=== PATIENT | male | born 1955 | race Caucasian/White ===

== ENCOUNTER 2018-04-19 13:30 | Emergency (ER) | payer OTHER, MEDICARE ==
--- NOTE | 2018-04-19 14:33 | ER Document Report ---
ED Medical Screen (RME) - General Chief Complaint: Respiratory Distress Stated Complaint: FEELS COLD Time Seen by Provider: 04/19/18 14:26 Notes: This 63-year-old male patient who moved to this area in November of this year is seen at the local [place] clinic. He reports complaining of feeling cold all over all the time for the past 2-3 months. He also complains of being short of breath, but states his breathing is at its baseline. His spouse feels that he needs oxygen but cannot convince anyone. He was on oxygen in the past prior to moving this area. His room air pulse ox is 98% today. He does continue to smoke. I have greeted and performed a rapid initial assessment of this patient. A comprehensive ED assessment and evaluation of the patient, analysis of test results and completion of the medical decision making process will be conducted by additional ED providers. TRAVEL OUTSIDE OF THE [place] IN LAST 30 DAYS: No - Related Data Allergies/Adverse Reactions: meclizine Allergy (Verified 04/19/18 13:31) Physical Exam - Vital signs Vitals: Temp Pulse Resp BP Pulse Ox 97.5 F 64 22 H 143/68 H 98 04/19/18 13:40 04/19/18 13:40 04/19/18 13:40 04/19/18 13:40 04/19/18 13:40 Course - Vital Signs Vital signs: Temp Pulse Resp BP Pulse Ox 97.5 F 64 22 H 143/68 H 98 04/19/18 13:40 04/19/18 13:40 04/19/18 13:40 04/19/18 13:40 04/19/18 13:40
[2018-04-19 15:10] LABS: ABSOLUTE BASOPHILS # (AUTO) 0.1 10^3/uL (0.0-0.2); ABSOLUTE EOSINOPHILS # (AUTO) 0.2 10^3/uL (0.0-0.6); ABSOLUTE LYMPHOCYTES (AUTO) 2.5 10^3/uL (0.5-4.7); ABSOLUTE MONOCYTES (AUTO) 0.8 10^3/uL (0.1-1.4); BASOPHILS % (AUTO) 1.2 % (0-2); EOSINOPHILS % (AUTO) 2.2 % (0-6); HEMATOCRIT 50.4 % (37.9-51.0); LYMPHOCYTES % (AUTO) 26.1 % (13-45); MEAN CORPUSCULAR HEMOGLOBIN 29.7 pg (27.0-33.4); MEAN CORPUSCULAR HGB CONC 33.8 g/dL (32.0-36.0); MEAN CORPUSCULAR VOLUME 88 fl (80-97); MONOCYTES % (AUTO) 8.2 % (3-13); PLATELET COUNT 250 10^3/uL (150-450); RED BLOOD COUNT 5.73 10^6/uL (4.35-5.55); RED CELL DISTRIBUTION WIDTH 13.8 % (11.5-14.0); SEGMENTED NEUTROPHILS % (AUTO) 62.3 % (42-78); TOTAL CELLS COUNTED % (AUTO) 100 %; WHITE BLOOD COUNT 9.6 10^3/uL (4.0-10.5)
--- NOTE | 2018-04-19 15:10 | ER Document Report ---
ED General - General Chief Complaint: Respiratory Distress Stated Complaint: FEELS COLD Time Seen by Provider: 04/19/18 14:26 Mode of Arrival: Ambulatory Information source: Patient Notes: 63-year-old male presents emergency department with complaints of chills for the last couple of months. Patient denies any other symptoms at this time. He states that he is chronically short of breath. He states that this is not new. He has a history of COPD and continues to smoke. [facility] ordered him a nebulizer machine but he has not received it yet. Patient states that he has been using an albuterol inhaler and Spiriva as needed. He is not on any home oxygen. He is not on CPAP. Patient denies any chest pain, abdominal pain, nausea, vomiting, diarrhea, constipation, dysuria, hematuria. TRAVEL OUTSIDE OF THE [place] IN LAST 30 DAYS: No - HPI Onset: Other - "months" Onset/Duration: Gradual Quality of pain: No pain Severity: None Pain Level: Denies Associated symptoms: Chills Exacerbated by: Denies Relieved by: Denies Similar symptoms previously: No Recently seen / treated by doctor: No - Related Data Allergies/Adverse Reactions: meclizine Allergy (Verified 04/19/18 13:31) Past Medical History - General Information source: Patient - Social History Smoking Status: Current Every Day Smoker Family History: Reviewed & Not Pertinent Patient has suicidal ideation: No Patient has homicidal ideation: No - Past Medical History Cardiac Medical History: Reports: Hx Heart Attack - x1, Hx Hypercholesterolemia , Hx Hypertension Pulmonary Medical History: Reports: Hx COPD Renal/ Medical History: Denies: Hx Peritoneal Dialysis Musculoskeletal Medical History: Reports Hx Arthritis - bilateral shoulders and hands Past Surgical History: Reports: Hx Cardiac Catheterization - x2 stents, Hx Testicular Surgery - right removed Review of Systems - Review of Systems Constitutional: Chills EENT: No symptoms reported Cardiovascular: No symptoms reported Respiratory: No symptoms reported Gastrointestinal: No symptoms reported Genitourinary: No symptoms reported Male Genitourinary: No symptoms reported Musculoskeletal: No symptoms reported Skin: No symptoms reported Hematologic/Lymphatic: No symptoms reported Neurological/Psychological: No symptoms reported -: Yes All other systems reviewed and negative Physical Exam - Vital signs Vitals: Temp Pulse Resp BP Pulse Ox 97.5 F 64 22 H 143/68 H 98 04/19/18 13:40 04/19/18 13:40 04/19/18 13:40 04/19/18 13:40 04/19/18 13:40 - Notes Notes: PHYSICAL EXAMINATION: GENERAL: Well-appearing, well-nourished and in no acute distress. HEAD: Atraumatic, normocephalic. EYES: Pupils equal round and reactive to light, extraocular movements intact, sclera anicteric, conjunctiva are normal. ENT: Nares patent, oropharynx clear without exudates. Moist mucous membranes. NECK: Normal range of motion, supple without lymphadenopathy LUNGS: Diffuse wheezing. HEART: Regular rate and rhythm without murmurs ABDOMEN: Soft, nontender, nondistended abdomen. No guarding, no rebound. No masses appreciated. Musculoskeletal: Normal range of motion, no pitting or edema. No cyanosis. NEUROLOGICAL: Cranial nerves grossly intact. Normal speech, normal gait. Normal sensory, motor exams PSYCH: Normal mood, normal affect. SKIN: Warm, Dry, normal turgor, no rashes or lesions noted. Course - Re-evaluation Re-evalutation: 04/19/18 15:15 EKG: Ventricular rate 60, WI interval 200, castration 76, QTc 396, sinus rhythm , no ST segment elevation. 04/19/18 15:59 Labs and imaging obtained. WBC is normal. No signs of infection in the urine. CXR shows blunting of the left costophrenic angle, Likely chronic. Signs COPD. Patient given solumedrol and duoneb in the ED. On re-evaluation, patient has no complaints besides chills. Vitals stable. Sating at 98% on room air. I will discharge home with rx for prednisone and azithromycin. I instructed the patient to follow up with his PCP this week, to take medication as directed, and to return for worsening symptoms. Patient is agreeable with the plan of care. 04/19/18 16:00 - Vital Signs Vital signs: Temp Pulse Resp BP Pulse Ox 97.5 F 64 22 H 143/68 H 98 04/19/18 13:40 04/19/18 13:40 04/19/18 13:40 04/19/18 13:40 04/19/18 13:40 - Laboratory Result Diagrams: 04/19/18 14:56 04/19/18 14:56 Laboratory results interpreted by me: 04/19/18 04/19/18 14:56 14:56 RBC 5.73 H Carbon Dioxide 34 H Total Bilirubin 1.4 H ALT 16 L Discharge - Discharge Clinical Impression: Chills COPD (chronic obstructive pulmonary disease) Qualifiers: COPD type: unspecified COPD Qualified Code(s): J44.9 - Chronic obstructive pulmonary disease, unspecified Condition: Good Disposition: HOME, SELF-CARE Instructions: Chronic Obstructive Lung Disease ([facility]), Pneumonia ([facility]) Prescriptions: Azithromycin [Zithromax 250 mg Tablet] 250 mg PO ASDIR PRN #6 tablet PRN Reason: Prednisone [Deltasone 20 mg Tablet] 3 tab PO DAILY 5 Days #15 tablet Referrals: SIM GRIFFIN DO [NO LOCAL MD] - Follow up as needed
[2018-04-19] MEDS ORDERED: IPRATROPIUM/ALBUTEROL 0.5-2.5 MG/3 ML AMPUL NEB ONE (15:22)
[2018-04-19] MEDS ORDERED: METHYLPREDNISOLONE INJ 125 MG/2 ML SDV IV ONE (15:22)
[2018-04-19 15:25] LABS: APPEARANCE,URINE CLEAR; BILIRUBIN,URINE NEGATIVE (NEGATIVE); COLOR,URINE COLORLESS; GLUCOSE, URINE NEGATIVE (NEGATIVE); KETONES,URINE NEGATIVE (NEGATIVE); LEUKOCYTE ESTERASE,URINE NEGATIVE (NEGATIVE); NITRITE,URINE NEGATIVE (NEGATIVE); PROTEIN,URINE NEGATIVE (NEGATIVE); URINE SPECIFIC GRAVITY 1.003; UROBILINOGEN,URINE NEGATIVE mg/dL (<2.0)
[2018-04-19 15:34] LABS: ALANINE AMINOTRANSFERASE 16 U/L (21-72); ALBUMIN 4.8 g/dL (3.5-5.0); ALKALINE PHOSPHATASE 98 U/L (38-126); ANION GAP 12 (5-19); ASPARTATE AMINO TRANSFERASE 25 U/L (17-59); BILIRUBIN,DIRECT 0.3 mg/dL (0.0-0.4); BILIRUBIN,TOTAL 1.4 mg/dL (0.2-1.3); BLOOD UREA NITROGEN 8 mg/dL (7-20); CALCIUM 9.6 mg/dL (8.4-10.2); CARBON DIOXIDE 34 mmol/L (22-30); CHLORIDE 99 mmol/L (98-107); GLUCOSE 88 mg/dL (75-110); POTASSIUM 4.1 mmol/L (3.6-5.0); SODIUM 144.7 mmol/L (137-145); TOTAL PROTEIN 7.6 g/dL (6.3-8.2)
--- NOTE | 2018-04-19 15:46 | RADIOLOGY REPORT (SQ) ---
EXAM DESCRIPTION: CHEST 2 VIEWS COMPLETED DATE/TIME: 04/19/2018 3:18 pm REASON FOR STUDY: SOB COMPARISON: None. EXAM PARAMETERS: NUMBER OF VIEWS: two views TECHNIQUE: Digital Frontal and Lateral radiographic views of the chest acquired. RADIATION DOSE: NA LIMITATIONS: none FINDINGS: LUNGS AND PLEURA: There are pleural and parenchymal changes in the left mid and lower hosea thorax with blunting of the left costophrenic angle which may be chronic in nature. The possibility of an acute process cannot be completely excluded however. Remaining lung hair are clear. There i s evidence for obstructive lung disease. MEDIASTINUM AND HILAR STRUCTURES: No masses or contour abnormalities. HEART AND VASCULAR STRUCTURES: Heart normal size. No evidence for failure. BONES: No acute findings. HARDWARE: None in the chest. OTHER: No other significant finding. IMPRESSION: Chronic appearing pleural and parenchymal changes in the left lower hemithorax as noted above. Remaining lung hair are clear. There is evidence for obstructive lung disease. Other find ings as noted above TECHNICAL DOCUMENTATION: JOB ID: [id number] [employer]- All Rights Reserved Reading location - IP/workstation name: [email or web address]
[2018-04-19] MEDS ORDERED: METHYLPREDNISOLONE INJ 125 MG/2 ML SDV IM ONE (15:55)
[2018-04-19 16:14] VITALS: BP 155/80
--- NOTE | 2018-04-19 20:11 | EKG REPORT ---
SEVERITY:- NORMAL ECG - SINUS RHYTHM : Confirmed by: Delgado Davidson 19-Apr-2018 20:10:31
== END 2018-04-19 16:18 | disposition home or self-care (01) ==
LOC: ER 13:30
DX: R68.83 Chills (without fever) (principal); J44.9 Chronic obstructive pulmonary disease, unspecified; R06.00 Dyspnea, unspecified; F17.210 Nicotine dependence, cigarettes, uncomplicated; E78.00 Pure hypercholesterolemia, unspecified; I10 Essential (primary) hypertension; I25.2 Old myocardial infarction
CPT/HCPCS: 93005; 94640; 99285; 96372; 36415; 85025; 80053; 81001; 71046; 93010; J2930; J7620

== ENCOUNTER 2018-10-18 11:08 | Emergency (ER) | payer OTHER, MEDICARE, MEDICAID ==
[2018-10-18] MEDS ORDERED: ONDANSETRON 4 MG TAB.RAPDIS PO ONE (12:00)
--- NOTE | 2018-10-18 12:02 | ER Document Report ---
ED Medical Screen (RME) - General Chief Complaint: Abdominal Pain Stated Complaint: ABDOMINAL PAIN Time Seen by Provider: 10/18/18 11:56 Mode of Arrival: Medic Information source: Patient Notes: 63-year-old male presented to ED for abdominal pain constipation nausea and vomiting x3 today. states she called the EMS because he would not straighten up to have was having so much pain in his abdomen. He does have a history of coronary artery disease heart attack blood pressure cholesterol and testicular cancer. He does have cardiac stents and had 1 of his testicles removed for the cancer. Patient is alert oriented respirations regular and unlabored peaking in full sentences at this time. He does smoke 1-1/2 to 2 packs/day does not drink or do drugs. Patient has tenderness to the lower abdomen with active bowel sounds I have greeted and performed a rapid initial assessment of this patient. A comprehensive ED assessment and evaluation of the patient, analysis of test results and completion of medical decision making process will be conducted by an additional ED providers. Dictation of this chart was performed using voice recognition software; therefore, there may be some unintended grammatical errors. TRAVEL OUTSIDE OF THE [place] IN LAST 30 DAYS: No - Related Data Allergies/Adverse Reactions: meclizine Allergy (Verified 10/18/18 11:10) Past Medical History - Past Medical History Cardiac Medical History: Reports: Hx Heart Attack - x1, Hx Hypercholesterolemia, Hx Hypertension Pulmonary Medical History: Reports: Hx COPD Renal/ Medical History: Denies: Hx Peritoneal Dialysis Musculoskeltal Medical History: Reports Hx Arthritis - bilateral shoulders and hands Past Surgical History: Reports: Hx Cardiac Catheterization - x2 stents, Hx Testicular Surgery - right removed Physical Exam - Vital signs Vitals: Temp Pulse Resp BP Pulse Ox 98.7 F 93 20 136/81 H 90 L 10/18/18 11:18 10/18/18 11:18 10/18/18 11:18 10/18/18 11:18 10/18/18 11:18 Course - Vital Signs Vital signs: Temp Pulse Resp BP Pulse Ox 98.7 F 93 20 136/81 H 90 L 10/18/18 11:18 10/18/18 11:18 10/18/18 11:18 10/18/18 11:18 10/18/18 11:18
[2018-10-18 12:35] LABS: ABSOLUTE BASOPHILS # (AUTO) 0.1 10^3/uL (0.0-0.2); ABSOLUTE LYMPHOCYTES (AUTO) 1.7 10^3/uL (0.5-4.7); ABSOLUTE MONOCYTES (AUTO) 0.8 10^3/uL (0.1-1.4); ABSOLUTE NEUT (AUTO) 13.3 10^3/uL (1.7-8.2); BASOPHILS % (AUTO) 0.9 % (0-2); EOSINOPHILS % (AUTO) 0.2 % (0-6); HEMATOCRIT 48.5 % (37.9-51.0); HEMOGLOBIN 15.9 g/dL (13.5-17.0); LYMPHOCYTES % (AUTO) 10.9 % (13-45); MEAN CORPUSCULAR HEMOGLOBIN 29.4 pg (27.0-33.4); MEAN CORPUSCULAR HGB CONC 32.7 g/dL (32.0-36.0); MEAN CORPUSCULAR VOLUME 90 fl (80-97); MONOCYTES % (AUTO) 4.8 % (3-13); PLATELET COUNT 368 10^3/uL (150-450); RED CELL DISTRIBUTION WIDTH 14.1 % (11.5-14.0); SEGMENTED NEUTROPHILS % (AUTO) 83.2 % (42-78); TOTAL CELLS COUNTED % (AUTO) 100 %
--- NOTE | 2018-10-18 12:39 | RADIOLOGY REPORT (SQ) ---
EXAM DESCRIPTION: ACUTE ABDOMEN SERIES COMPLETED DATE/TIME: 10/18/2018 12:31 pm REASON FOR STUDY: abdominal pain nv COMPARISON: None. NUMBER OF VIEWS: Three views. TECHNIQUE: Frontal chest, supine abdomen and upright/decubitus abdomen radiographic images acquired. LIMITATIONS: None. FINDINGS: CHEST: Lungs clear of infiltrates. FREE AIR: None. No abnormal gas collections. BOWEL GAS PATTERN: Nonobstructive pattern. No dilated loops or air fluid levels. CALCIFICATIONS: No suspicious calcifications. HARDWARE: None in the abdomen. SOFT TISSUES: No gross mass or suggestion of organomegaly. BONES: No acute fracture. No worrisome bone lesions. OTHER: No other significant finding. IMPRESSION: NO RADIOGRAPHIC EVIDENCE FOR ACUTE ABDOMINAL DISEASE. TECHNICAL DOCUMENTATION: JOB ID: [id number] [employer]- All Rights Reserved Reading location - IP/workstation name: [email or web address]
[2018-10-18 12:57] LABS: ALANINE AMINOTRANSFERASE 28 U/L (21-72); ALBUMIN 4.6 g/dL (3.5-5.0); ALKALINE PHOSPHATASE 144 U/L (38-126); ANION GAP 19 (5-19); ASPARTATE AMINO TRANSFERASE 28 U/L (17-59); BILIRUBIN,DIRECT 0.3 mg/dL (0.0-0.4); BILIRUBIN,TOTAL 1.9 mg/dL (0.2-1.3); BLOOD UREA NITROGEN 23 mg/dL (7-20); CARBON DIOXIDE 29 mmol/L (22-30); CHLORIDE 96 mmol/L (98-107); GLUCOSE 125 mg/dL (75-110); LIPASE 43.4 U/L (23-300); POTASSIUM 4.9 mmol/L (3.6-5.0); TOTAL PROTEIN 7.2 g/dL (6.3-8.2)
[2018-10-18] MEDS ORDERED: IPRATROPIUM/ALBUTEROL 0.5-2.5 MG/3 ML AMPUL NEB ONE (15:55)
[2018-10-18] MEDS ORDERED: NORMAL SALINE 1000 ML 1,000 ML IV ONE ×2 (15:56→18:02)
--- NOTE | 2018-10-18 16:18 | ER Document Report ---
ED General - General Chief Complaint: Abdominal Pain Stated Complaint: ABDOMINAL PAIN Time Seen by Provider: 10/18/18 11:56 Primary Care Provider: KARINE MARCANO [Primary Care Provider] - Follow up as needed Mode of Arrival: Medic TRAVEL OUTSIDE OF THE [place] IN LAST 30 DAYS: No - HPI Notes: Patient is a 63-year-old male that presents to the emergency department for chief complaint of lower abdominal pain. Patient states when he woke up at 8 AM this morning he noted a pressure and pain sensation in his suprapubic region. He also reports a pressure in his low back. He denies any associated fevers or chills. He states he has not urinated since yesterday afternoon. He denies history of urinary obstruction in the past. Patient is unsure when his last bowel movement was and does believe he has had constipation. Patient denies any aggravating or relieving factors to his pain. Past Medical History: COPD, hypertension Past Surgical History: Negative Social History: Daily tobacco. Denies drug and alcohol use Family History: Reviewed and noncontributory for presenting illness Allergies: Reviewed, see documented allergy list. REVIEW OF SYSTEMS: CONSTITUTIONAL : No fever No chills No diaphoresis No recent illness EENT: No vision changes No congestion No sore throat CARDIOVASCULAR: No chest pain No palpitations RESPIRATORY: No shortness of breath No cough No difficulty breathing GASTROINTESTINAL: abdominal pain No nausea No vomiting No diarrhea GENITOURINARY: No dysuria No hematuria difficulty urinating MUSCULOSKELETAL: No back pain No leg pain No arm pain SKIN: No rashes No lesions LYMPHATIC: No swollen, enlarged glands. NEUROLOGICAL: No lightheadedness No headache No weakness No paresthesias PSYCHIATRIC: No anxiety No depression PHYSICAL EXAMINATION: Vital signs reviewed, nursing noted reviewed. GENERAL: Well-appearing, well-nourished and in no acute distress. HEAD: Atraumatic, normocephalic. EYES: Eyes appear normal, extraocular movements intact, sclera anicteric, conjunctiva are normal. ENT: nares patent, oropharynx clear without exudates. Moist mucous membranes. NECK: Normal range of motion, supple without lymphadenopathy LUNGS: Breath sounds clear to auscultation bilaterally and equal. No wheezes rales or rhonchi. HEART: Regular rate and rhythm without murmurs ABDOMEN: Soft, mild suprapubic tenderness, normoactive bowel sounds. No rebound, guarding, or rigidity. No masses appreciated. EXTREMITIES: Nontender, good range of motion, no pitting or edema. NEUROLOGICAL: No focal neurological deficits. Moves all extremities spontaneously Motor and sensory grossly intact on exam. PSYCH: Normal mood, normal affect. SKIN: Warm, Dry, normal turgor, no rashes or lesions noted on exposed skin - Related Data Allergies/Adverse Reactions: meclizine Allergy (Verified 10/18/18 11:10) Past Medical History - General Information source: Patient - Social History Smoking Status: Current Every Day Smoker Chew tobacco use (# tins/day): No Frequency of alcohol use: None Drug Abuse: None Family History: Reviewed & Not Pertinent Patient has suicidal ideation: No Patient has homicidal ideation: No - Past Medical History Cardiac Medical History: Reports: Hx Heart Attack - x1, Hx Hypercholesterolemia, Hx Hypertension Pulmonary Medical History: Reports: Hx COPD Renal/ Medical History: Denies: Hx Peritoneal Dialysis Musculoskeletal Medical History: Reports Hx Arthritis - bilateral shoulders and hands Past Surgical History: Reports: Hx Cardiac Catheterization - x2 stents, Hx Testicular Surgery - right removed Physical Exam - Vital signs Vitals: Temp Pulse Resp BP Pulse Ox 98.7 F 93 20 136/81 H 90 L 10/18/18 11:18 10/18/18 11:18 10/18/18 11:18 10/18/18 11:18 10/18/18 11:18 Course - Re-evaluation Re-evalutation: 10/18/18 16:17 Vitals reviewed. Nursing notes reviewed. Patient is afebrile and nontoxic in appearance. He does have a leukocytosis of 16. Patient has not been able to void since yesterday afternoon and Perdomo catheter has been ordered for urinary retention. 10/18/18 21:04 Patient reevaluated and his abdominal exam is unchanged. He is still mildly tender in the suprapubic region with no left upper or lower quadrant tenderness or peritoneal signs. His vital signs have remained stable. He states his pain is dull and well-controlled. He does have a leukocytosis on lab work. The remainder of his blood work is unremarkable. Urinalysis is negative. Patient had decreased urine output and only 60 mL's initially. Perdomo catheter was left in for strict I's and O's. Patient's renal function is normal. CT scan was obtained and shows a left-sided colitis. He has a large thrombus in his SMA but normal-appearing SMA distribution bowel. His JUSTIN is not well-visualized. I discussed patient's CT images with the radiologist who feels that he likely needs angiogram to further evaluate JUSTIN distribution of the bowel. There is a possibility that patient's colitis is ischemic however his abdominal exam and presentation is more consistent with infectious versus inflammatory. Currently do not have GI or vascular surgery available. Patient is requiring angiogram of his abdomen and colonoscopy with possible biopsy for further evaluation of the etiology of his colitis. Patient will be transferred to [facility] for further care. He is in agreement with this plan of care. Currently awaiting a callback from admitting physician. Laboratory 10/18/18 10/18/18 10/18/18 12:20 12:20 17:30 WBC 16.0 H RBC 5.40 Hgb 15.9 Hct 48.5 MCV 90 MCH 29.4 MCHC 32.7 RDW 14.1 H Plt Count 368 Seg Neutrophils % 83.2 H Lymphocytes % 10.9 L Monocytes % 4.8 Eosinophils % 0.2 Basophils % 0.9 Absolute Neutrophils 13.3 H Absolute Lymphocytes 1.7 Absolute Monocytes 0.8 Absolute Eosinophils 0.0 Absolute Basophils 0.1 Sodium 144.0 Potassium 4.9 Chloride 96 L Carbon Dioxide 29 Anion Gap 19 BUN 23 H Creatinine 1.25 Est GFR ( Amer) > 60 Est GFR (Non-Af Amer) 58 L Glucose 125 H Calcium 10.0 Total Bilirubin 1.9 H Direct Bilirubin 0.3 Neonat Total Bilirubin Not Reportable Neonat Direct Bilirubin Not Reportable Neonat Indirect Bili Not Reportable AST 28 ALT 28 Alkaline Phosphatase 144 H Total Protein 7.2 Albumin 4.6 Lipase 43.4 Urine Color BENOIT Urine Appearance CLOUDY Urine pH 5.0 Ur Specific [place] 1.019 Urine Protein 100 H Urine Glucose (UA) NEGATIVE Urine Ketones 20 H Urine Blood NEGATIVE Urine Nitrite NEGATIVE Urine Bilirubin SMALL H Urine Urobilinogen 4.0 H Ur Leukocyte Esterase NEGATIVE Urine WBC (Auto) 8 Urine RBC (Auto) 0 U Hyaline Cast (Auto) 73 Squamous Epi Cells Auto 2 Urine Mucus (Auto) MOD Urine Ascorbic Acid NEGATIVE Acute Abdomen Series 10/18/18 12:00 IMPRESSION: NO RADIOGRAPHIC EVIDENCE FOR ACUTE ABDOMINAL DISEASE. Abdomen/Pelvis CT 10/18/18 18:23 IMPRESSION: 1. Moderately atherosclerotic abdominal aorta and iliac arteries. 2. Suspected mild colitis extending from the splenic flexure of the colon to the proximal rectum. This could represent occlusion of the inferior mesenteric artery that is not well visualized on this specific examination. 3. Evaluation of the super mesenteric artery demonstrates an elongated defect suspicious for thrombus or embolus located in its origin. No obvious ischemic changes in the small bowel and right colon which would be SMA territory. If clinically suspicious, consider CT angiogram or interventional angiogram. 4. Left pleural calcifications. Suspicious for asbestos exposure although a if unilateral may be due to other old insult.. Patient's care was discussed with Dr. Holden Gonzalez, vascular surgery, at [facility] who has accepted patient for transfer. He would like to evaluate patient and review his films prior to definitive management of his SMA finding. He is concerned this may be plaque instead of thrombus or embolus. Patient will be transferred to the emergency room where vascular surgery will evaluate him for further management. Because of delay in ground transportation Dr. Gonzalez has approved [facility]. Patient is currently stable for transfer. - Vital Signs Vital signs: Temp Pulse Resp BP Pulse Ox 97.7 F 89 16 150/79 H 95 10/18/18 15:53 10/18/18 15:53 10/18/18 15:53 10/18/18 15:53 10/18/18 15:53 - Laboratory Result Diagrams: 10/18/18 12:20 10/18/18 12:20 Laboratory results interpreted by me: 10/18/18 10/18/18 10/18/18 12:20 12:20 17:30 WBC 16.0 H RDW 14.1 H Seg Neutrophils % 83.2 H Lymphocytes % 10.9 L Absolute Neutrophils 13.3 H Chloride 96 L BUN 23 H Est GFR (Non-Af Amer) 58 L Glucose 125 H Total Bilirubin 1.9 H Alkaline Phosphatase 144 H Urine Protein 100 H Urine Ketones 20 H Urine Bilirubin SMALL H Urine Urobilinogen 4.0 H Discharge - Discharge Clinical Impression: Superior mesenteric artery thrombosis, Colitis Condition: Stable Disposition: [facility]: [facility] [Primary [facility] Provider] - Follow up as needed
[2018-10-18 18:05] LABS: APPEARANCE,URINE CLOUDY; BILIRUBIN,URINE SMALL (NEGATIVE); COLOR,URINE AMBER; GLUCOSE, URINE NEGATIVE (NEGATIVE); KETONES,URINE 20 mg/dL (NEGATIVE); LEUKOCYTE ESTERASE,URINE NEGATIVE (NEGATIVE); NITRITE,URINE NEGATIVE (NEGATIVE); PROTEIN,URINE 100 mg/dL (NEGATIVE); URINE SPECIFIC GRAVITY 1.019
--- NOTE | 2018-10-18 20:31 | RADIOLOGY REPORT (SQ) ---
EXAM DESCRIPTION: CLINICAL HISTORY: 63 years Male lower abdominal pain COMPARISON: None TECHNIQUE: Axial images with IV contrast. 63 mL of Omnipaque 350 provided. FINDINGS: Minimal scarring in the lung bases. Minimal left pleurodiaphragmatic calcification. Coarse left lateral pleural calcification. The liver, spleen, pancreas, biliary system, adrenal glands, kidneys, para-aortic regions are unremarkable. Moderately atherosclerotic aorta without significant dilatation or narrowing. Suspected significant atherosclerotic disease possibly even small embolus in the origin of the super mesenteric artery. Series 3 image 19. Series 602 image 50. Arterial anatomy is not optimally delineated. Small bowel loops are unremarkable. Right and transverse colon are unremarkable. There is mild thickening of the wall of the descending colon. CT of the pelvis demonstrates mild to moderate thickening of the entire sigmoid wall. Upper rectum may be involved also. Distal rectum is unremarkable. Urinary bladder partially contracted. Small amount of air within the bladder is apparently within a balloon catheter.. No evidence for free fluid or free air and no evidence for adenopathy.. IMPRESSION: 1. Moderately atherosclerotic abdominal aorta and iliac arteries. 2. Suspected mild colitis extending from the splenic flexure of the colon to the proximal rectum. This could represent occlusion of the inferior mesenteric artery that is not well visualized on this specific examination. 3. Evaluation of the super mesenteric artery demonstrates an elongated defect suspicious for thrombus or embolus located in its origin. No obvious ischemic changes in the small bowel and right colon which would be SMA territory. If clinically suspicious, consider CT angiogram or interventional angiogram. 4. Left pleural calcifications. Suspicious for asbestos exposure although a if unilateral may be due to other old insult..
[2018-10-18] MEDS ORDERED: MORPHINE SULFATE 10 MG/ML INJ IV ONE (22:14)
[2018-10-18 23:26] VITALS: BP 167/84
== END 2018-10-18 22:47 | disposition short-term general hospital (02) ==
LOC: ER 11:08
DX: K55.069 Acute infarction of intestine, part and extent unspecified (principal); K52.89 Other specified noninfective gastroenteritis and colitis; I70.0 Atherosclerosis of aorta; I70.8 Atherosclerosis of other arteries; R33.9 Retention of urine, unspecified; R10.30 Lower abdominal pain, unspecified; J44.9 Chronic obstructive pulmonary disease, unspecified; J94.8 Other specified pleural conditions; I10 Essential (primary) hypertension; F17.200 Nicotine dependence, unspecified, uncomplicated; Z88.8 Allergy status to other drugs, medicaments and biological substances
CPT/HCPCS: 94640; 99285; 96361; 51702; 96374; 36415; 83605; 83690; 85025; 80053; 81001; 74022; 74177; C1758; S0119; J2270; J7030; J7620

== ENCOUNTER → 2019-05-18 | Outpatient (CLI) | payer OTHER ==
--- NOTE | 2019-05-18 16:07 | RADIOLOGY REPORT (SQ) ---
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 TECHNIQUE: Multiplanar imaging includes noncontrasted T1, T2, FLAIR, diffusion with ADC map and post gadolinium contrast T1 sequences. Additional thin section coronal and sagittal T2, T1 precontrast, T1 postcontrast images through the p ituitary fossa. Images stored on PACS. CONTRAST TYPE AND DOSE: 10 mL Dotarem. RENAL FUNCTION: Not indicated. ACR Type II contrast agent associated with few, if any, unconfounded cases of NSF LIMITATIONS: Motion artifact on the post contrasted images FINDINGS: PITUITARY FOSSA: Normal size pituitary gland for age. No focal lesions. No cysts. Midli ne infundibulum caps normal suprasellar cistern and optic chiasm. Pituitary gland measures 11 mm AP by 12 mm transverse by 4 mm craniocaudad. CSF SPACES: Normal in size and contour. No hemorrhage. CEREBRUM: Sulci and gyri normal in size and contour. Normal white matter signal on FLAIR imaging. No evidence of hemorrhage, mass, or extraaxial fluid collection. No abnormal enhancement post contrast. POSTERIOR FOSSA: No signal alteration. No hemorrhage. No edema, masses, or mass effect. Internal charlie tory canals, cerebellopontine angles, mastoids normal. No enhancing lesions. No abnormal enhancement post contrast. DIFFUSION IMAGING: Negative for acute or subacute infarction. ORBITS: No masses. Globes normal. PARANASAL SINUSES: No fluid levels. Mucosa normal. OTHER: No other significant finding. IMPRESSION: NORMAL MRI OF THE BRAIN WITHOUT AND WITH INTRAVENOUS GADOLINIUM CONTRAST. EVIDENCE OF ACUTE STROKE: NO. TECHNICAL DOCUMENTATION: JOB ID: [id number] [employer]- All Rights Reserved Reading location - IP/workstation name: [email or web address]
== END ==
LOC: RAD 12:02
PROVIDERS: ATTEND Family Medicine
DX: D35.2 Benign neoplasm of pituitary gland (principal)
CPT/HCPCS: 82565; 70553; A9576

== ENCOUNTER 2020-01-31 16:35 | Emergency (ER) | payer MEDICARE, OTHER ==
--- NOTE | 2020-01-31 17:24 | ER Document Report ---
ED Medical Screen (RME) - General Chief Complaint: Headache Stated Complaint: FALL/HEAD PAIN Time Seen by Provider: 01/31/20 17:14 Primary Care Provider: MEDARDO BAKER MD [Primary Care Provider] - Follow up as needed Mode of Arrival: Ambulatory Information source: Patient Notes: 65-year-old male presented to ED for complaint of headaches every other day affecting his vision. [facility]. He states he started having sex about a month ago but Thursday they got much worse he actually blacked out and fell. He states he [facility] to call [facility] on Thursday and he could not get a hold to him but today they got home to him and sent him to the emergency room. 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 He states he does smoke a half a pack a day does not drink or use any illicit drugs. He is alert and oriented respirations regular nonlabored speaking in full sentences. I have greeted and performed a rapid initial assessment of this patient. A comprehensive ED assessment and evaluation of the patient, analysis of test results and completion of medical decision making process will be conducted by an additional ED providers. TRAVEL OUTSIDE OF THE [place] IN LAST 30 DAYS: No - Related Data Allergies/Adverse Reactions: meclizine Allergy (Verified 01/31/20 17:13) Home Medications: eye surgery retinol detachment. testicular right removed. stent - cardiac. copd. ptsd. pad. pvd. cad. cholesterol. htn Past Medical History - Social History Chew tobacco use (# tins/day): No Frequency of alcohol use: None Drug Abuse: None - Past Medical History Cardiac Medical History: Reports: Hx Heart Attack - x1, Hx Hypercholesterolemia, Hx Hypertension Pulmonary Medical History: Reports: Hx COPD Renal/ Medical History: Denies: Hx Peritoneal Dialysis Musculoskeltal Medical History: Reports Hx Arthritis - bilateral shoulders and hands Past Surgical History: Reports: Hx Cardiac Catheterization - x2 stents, Hx Testicular Surgery - right removed Physical Exam - Vital signs Vitals: Temp Pulse Resp BP Pulse Ox 97.6 F 85 18 162/71 H 96 01/31/20 16:41 01/31/20 16:41 01/31/20 16:41 01/31/20 16:41 01/31/20 16:41 Course - Vital Signs Vital signs: Temp Pulse Resp BP Pulse Ox 97.6 F 85 18 162/71 H 96 01/31/20 17:13 01/31/20 16:41 01/31/20 16:41 01/31/20 16:41 01/31/20 16:41 Doctor's Discharge - Discharge Referrals: MEDARDO BAKER MD [Primary Care Provider] - Follow up as needed
[2020-01-31 18:17] LABS: ABSOLUTE BASOPHILS # (AUTO) 0.2 10^3/uL (0.0-0.2); ABSOLUTE EOSINOPHILS # (AUTO) 0.2 10^3/uL (0.0-0.6); ABSOLUTE LYMPHOCYTES (AUTO) 1.8 10^3/uL (0.5-4.7); ABSOLUTE MONOCYTES (AUTO) 0.6 10^3/uL (0.1-1.4); ABSOLUTE NEUT (AUTO) 4.9 10^3/uL (1.7-8.2); BASOPHILS % (AUTO) 2.1 % (0-2); EOSINOPHILS % (AUTO) 2.3 % (0-6); HEMATOCRIT 45.4 % (37.9-51.0); LYMPHOCYTES % (AUTO) 23.4 % (13-45); MEAN CORPUSCULAR HEMOGLOBIN 30.5 pg (27.0-33.4); MEAN CORPUSCULAR HGB CONC 33.1 g/dL (32.0-36.0); MEAN CORPUSCULAR VOLUME 92 fl (80-97); MONOCYTES % (AUTO) 8.1 % (3-13); PLATELET COUNT 223 10^3/uL (150-450); RED BLOOD COUNT 4.94 10^6/uL (4.35-5.55); RED CELL DISTRIBUTION WIDTH 14.2 % (11.5-14.0); SEGMENTED NEUTROPHILS % (AUTO) 64.1 % (42-78); TOTAL CELLS COUNTED % (AUTO) 100 %; WHITE BLOOD COUNT 7.7 10^3/uL (4.0-10.5)
[2020-01-31 18:22] LABS: APPEARANCE,URINE SLIGHTLY-CLOUDY; BILIRUBIN,URINE NEGATIVE (NEGATIVE); COLOR,URINE AMBER; GLUCOSE, URINE NEGATIVE (NEGATIVE); KETONES,URINE TRACE mg/dL (NEGATIVE); LEUKOCYTE ESTERASE,URINE NEGATIVE (NEGATIVE); NITRITE,URINE NEGATIVE (NEGATIVE); PROTEIN,URINE 100 mg/dL (NEGATIVE); URINE SPECIFIC GRAVITY 1.024
[2020-01-31 18:34] LABS: ALBUMIN 4.1 g/dL (3.5-5.0); ALKALINE PHOSPHATASE 72 U/L (38-126); ANION GAP 8 (5-19); ASPARTATE AMINO TRANSFERASE 22 U/L (17-59); BILIRUBIN,DIRECT 0.2 mg/dL (0.0-0.4); BILIRUBIN,TOTAL 0.9 mg/dL (0.2-1.3); BLOOD UREA NITROGEN 14 mg/dL (7-20); CALCIUM 9.2 mg/dL (8.4-10.2); CARBON DIOXIDE 30 mmol/L (22-30); CHLORIDE 103 mmol/L (98-107); GLUCOSE 90 mg/dL (75-110); POTASSIUM 5.2 mmol/L (3.6-5.0); TOTAL PROTEIN 6.2 g/dL (6.3-8.2)
[2020-01-31 18:36] LABS: ACETAMINOPHEN < 10 ug/mL (10-30)
--- NOTE | 2020-01-31 19:36 | RADIOLOGY REPORT (SQ) ---
EXAM DESCRIPTION: CTA HEAD IMAGES COMPLETED DATE/TIME: 01/31/2020 7:01 pm REASON FOR STUDY: Headache affecting vision COMPARISON: None. TECHNIQUE: Post IV contrast scanning, thin section axial imaging through the brain to evaluate the a rterial structures. Source and MIP images are saved and reviewed on PACS. Advanced 3D imaging as volume-rendering, MIPs, SSD performed? yes All CT scanners at this facility use dose modulation, iterative reconstruction, and/or weight based d osing when appropriate to reduce radiation dose to as low as reasonably achievable (ALARA). [facility]: Dose Right [facility]: CareDose [facility]: Dose Right [facility]: Teradose 4D [facility]: Yesware CONTRAST TYPE AND DOSE: contrast/concentration: Isovue 350.00 mmol/ml; Total Contrast Delivered: 70. 0 ml; Total Saline Delivered: 75.0 ml RENAL FUNCTION: Creatinine -0.84 BUN=14 RADIATION DOSE: Total exam DLP: 1331.81 mGy LIMITATIONS: None. FINDINGS: [place] GRANDE OF RIZVI: The anterior, middle, posterior cerebral arteries are all patent. No ev idence of aneurysm or focal stenosis. POSTERIOR CIRCULATION: The distal vertebral arteries are patent as is the basilar artery. No aneurysm . BRAIN: No gross enhancing lesions as visualized. The superior cerebral hemispheres are not included in the field of view. BONES: Intact as visualized. SINUSES: No fluid or mucosal thickening. Deviation of the nasal septum to the left of the midline. Nasal bony spur. OTHER: No other significant finding. IMPRESSION: 1. NO CTA EVIDENCE OF STENOSIS OR ANEURYSM OF THE [place] GRANDE OF RIZVI. TECHNICAL DOCUMENTATION: JOB ID: [id number] Quality ID # 436: Final reports with documentation of one or more dose reduction techniques (e.g., Au tomated exposure control, adjustment of the mA and/or kV according to patient size, use of iterative reconstruction technique) 2010 [email or web address]- All Rights Reserved Reading location - IP/workstation name: [email or web address]
--- NOTE | 2020-01-31 19:42 | RADIOLOGY REPORT (SQ) ---
EXAM DESCRIPTION: CTA NECK IMAGES COMPLETED DATE/TIME: 01/31/2020 7:02 pm REASON FOR STUDY: POSSIBLE STENOSIS COMPARISON: None. TECHNIQUE: Axial dynamic scanning technique with dynamic contrast enhancement through the extra-lifts and cranes inspector nial carotid and vertebral arteries. Multiplanar reconstruction. 3-D MIPS and Volume-rendered imag es acquired at the workstation and saved to PACS. Images are reviewed in soft tissue, bone, lung w indows. All CT scanners at this facility use dose modulation, iterative reconstruction, and/or weight based d osing when appropriate to reduce radiation dose to as low as reasonably achievable (ALARA). [facility]: Dose Right [facility]: CareDose [facility]: Dose Right [facility]: Teradose 4D [facility]: HomeJab RADIATION DOSE: Total exam DLP: 1331.81 mGy CONTRAST TYPE AND DOSE: 75 m Omnipaque 350 RENAL FUNCTION: Creatinine-0.84 BUN=14 LIMITATIONS: None. FINDINGS: AORTIC ARCH: Normal three-vessel origin. Bilateral subclavian arteries are patent. No d issection. RIGHT CAROTIDS: Patent common, internal and external carotid arteries without suggestion of significa nt stenosis or irregular plaque. No dissection. RIGHT VERTEBRAL: Patent. No dissection. LEFT CAROTIDS: Patent common, internal and external carotid arteries without suggestion of significan t stenosis or irregular plaque. No dissection. LEFT VERTEBRAL: Patent. No dissection. OTHER: Emphysematous changes in the lungs. A few calcified plaques left upper hemithorax. Degenera tive cervical spondylosis. OTHER: 3-D reconstructions confirm findings. IMPRESSION: 1. NORMAL CTA OF THE EXTRA-CRANIAL CAROTID AND VERTEBRAL ARTERIES. COMMENT: Quality ID #[id number]: Measurements of distal internal carotid diameter were used as the denomina tor for stenosis measurement. TECHNICAL DOCUMENTATION: JOB ID: [id number] Quality ID # 436: Final reports with documentation of one or more dose reduction techniques (e.g., Au tomated exposure control, adjustment of the mA and/or kV according to patient size, use of iterative reconstruction technique) 2010 [email or web address]- All Rights Reserved Reading location - IP/workstation name: [email or web address]
[2020-01-31] MEDS ORDERED: NORMAL SALINE 500 ML IV ONE (23:04)
--- NOTE | 2020-01-31 23:08 | ER Document Report ---
ED General - General Chief Complaint: Headache Stated Complaint: FALL/HEAD PAIN Time Seen by Provider: 01/31/20 17:14 Primary Care Provider: MEDARDO BAKER MD [Primary Care Provider] - Follow up as needed Mode of Arrival: Ambulatory TRAVEL OUTSIDE OF THE [place] IN LAST 30 DAYS: No - HPI Notes: Patient is a 65-year-old male who presents to the emergency department for evaluation of headaches. He states his been having headaches for about a month. He states that they happen about every other day. He does have days where he is pain-free. He states he has other days where it hurts the entire day. He states it is in his forehead, "over my sinuses". He currently puts his pain at a 5 out of 10. I asked him if he has had severe pain with him, he states yes, but not for a few months. On further questioning he has had headaches similar to this in the past, they do seem to be getting more frequent. He did have nausea with one episode of emesis with one headache this month, but states that that is not the norm. Occasionally he gets some blurred vision with it, but denies any blurred vision at this time. He states he has frequent falls, has struck his head intermittently. He attributes these falls to vertigo, which he was diagnosed with several years ago. He has no difficulty speaking or swallowing. He cannot affix any temporal pattern to his headaches, states that frequently they are helped significantly by Tylenol. He had tried to call his primary care provider to set up an appointment, but they sent him here for further evaluation. - Related Data Allergies/Adverse Reactions: meclizine Allergy (Verified 01/31/20 17:13) Home Medications: Patient is unsure of his medications. He does state that he takes Plavix and something for blood pressure, cholesterol. Also admits to an antidepressant. Past Medical History - General Information source: Patient - Social History Smoking Status: Current Every Day Smoker Chew tobacco use (# tins/day): No Frequency of alcohol use: None Drug Abuse: None Family History: Reviewed & Not Pertinent Patient has homicidal ideation: No - Past Medical History Cardiac Medical History: Reports: Hx Coronary Artery Disease, Hx Heart Attack - x1, Hx Hypercholesterolemia, Hx Hypertension Pulmonary Medical History: Reports: Hx COPD Neurological Medical History: Reports: Other - Vertigo Renal/ Medical History: Denies: Hx Peritoneal Dialysis Musculoskeletal Medical History: Reports Hx Arthritis - bilateral shoulders and hands Past Surgical History: Reports: Hx Cardiac Catheterization - x2 stents, Hx Testicular Surgery - right removed Review of Systems - Review of Systems Constitutional: No symptoms reported EENT: See HPI Cardiovascular: No symptoms reported Respiratory: No symptoms reported Gastrointestinal: See HPI Genitourinary: No symptoms reported Musculoskeletal: No symptoms reported Skin: No symptoms reported Neurological/Psychological: See HPI Physical Exam - Vital signs Vitals: Temp Pulse Resp BP Pulse Ox 97.6 F 85 18 162/71 H 96 01/31/20 16:41 01/31/20 16:41 01/31/20 16:41 01/31/20 16:41 01/31/20 16:41 - Notes Notes: This is a frail appearing 65-year-old gentleman, who appears older than his stated age, in no acute distress. Vital signs reviewed, please refer to chart. Head is normocephalic, atraumatic. Pupils equal round, reactive to light. Neck is supple without meningismus. Heart is regular rate and rhythm. Lungs are clear to auscultation bilaterally. Abdomen is soft, nontender, normoactive bowel sounds throughout. Extremities without cyanosis, clubbing. Posterior calves are nontender. Peripheral pulses are equal. Skin is warm and dry. Patient is awake, alert, oriented x3. Cranial nerves II - XII are grossly intact without focal neurological deficits. Strength is plus 5 out of 5 bilateral upper and lower extremities. Sensation is intact. Reflexes symmetrical. Intact [id number], rapid alternating movements, [id number]. Course - Re-evaluation Re-evalutation: 01/31/20 23:10 Patient presents to the emergency department for evaluation. Laboratory investigations and imaging is ordered through triage. Patient has a minimal headache right now. I will give him IV fluids. He has not taken any Tylenol today, will recommend that as well. In short, this patient has more frequent headaches, but these are similar to headaches he has had in the past. It is waxing and waning. His sinuses are nontender, and although the location is consistent with possible sinusitis, his other symptoms or not. I do not have a clear etiology of the symptoms, but I do not see any emergent cause at this time. He is encouraged to continue to stay hydrated, take Tylenol as needed, and follow-up with primary care. Return to the ED with worsening or new concerning symptoms of any sort. - Vital Signs Vital signs: Temp Pulse Resp BP Pulse Ox 97.6 F 85 18 162/71 H 96 01/31/20 17:13 01/31/20 16:41 01/31/20 16:41 01/31/20 16:41 01/31/20 16:41 - Laboratory Result Diagrams: 01/31/20 17:50 01/31/20 17:50 Laboratory results interpreted by me: 01/31/20 01/31/20 01/31/20 17:50 17:50 17:50 RDW 14.2 H Baso % (Auto) 2.1 H Potassium 5.2 H Total Protein 6.2 L Urine Protein 100 H Urine Ketones TRACE H Urine Urobilinogen 4.0 H Acetaminophen < 10 L - Diagnostic Test Radiology reviewed: Reports reviewed Radiology results interpreted by me: 01/31/20 23:12 Neck CTA 01/31/20 00:00 IMPRESSION: 1. NORMAL CTA OF THE EXTRA-CRANIAL CAROTID AND VERTEBRAL ARTERIES. Head CTA 01/31/20 17:21 IMPRESSION: 1. NO CTA EVIDENCE OF STENOSIS OR ANEURYSM OF THE [place] OF RIZVI. Discharge - Discharge Clinical Impression: Headache Qualifiers: Headache type: unspecified Headache chronicity pattern: episodic headache Condition: Stable Disposition: HOME, SELF-CARE Instructions: Headache ([facility]) Additional Instructions: No clear, emergent cause was identified for your headache today. Please continue to stay well-hydrated, take Tylenol as needed for pain. Follow-up with your primary care provider this week. Return to the emergency department with worsening or new concerning symptoms of any sort. Referrals: MEDARDO BAKER MD [Primary Care Provider] - Follow up as needed
[2020-01-31 23:41] VITALS: BP 175/79
== END 2020-01-31 23:40 | disposition home or self-care (01) ==
LOC: ER 16:35
DX: R51 Headache (principal); R29.6 Repeated falls; I25.10 Atherosclerotic heart disease of native coronary artery without angina pectoris; I25.2 Old myocardial infarction; I10 Essential (primary) hypertension; J44.9 Chronic obstructive pulmonary disease, unspecified; F17.200 Nicotine dependence, unspecified, uncomplicated; Z79.01 Long term (current) use of anticoagulants; Z79.899 Other long term (current) drug therapy; Z95.5 Presence of coronary angioplasty implant and graft
CPT/HCPCS: 99285; 96360; 36415; 83690; 80307; 85025; 80053; 81001; 70496; 70498; J7040